=== PATIENT | female | born 1990 | race Two or more races ===

== ENCOUNTER 2016-08-26 05:12 | Observation (INO) | payer BC ==
[2016-08-26] MEDS ORDERED: NS 1,000 ML IV ONE (05:19)
[2016-08-26] MEDS ORDERED: ONDANSETRON 4 MG/2 ML VIAL IVP ONE (05:19)
--- NOTE | 2016-08-26 05:19 | EDPHY ---
H & P HPI/ROS: HPI CHIEF COMPLAINT: Seizure HISTORY OF PRESENT ILLNESS: This patient very pleasant 25-year-old female, does have significant past medical history for seizures, she lives in [facility] and is visiting a friend here in [place]. According to EMS she had 3 seizures this evening. Per her friend who witnessed the seizures she had 3 individual seizures lasting 20-30 seconds. The 1st seizure was at 10:00 p.m., 2nd seizure 2:45 a.m., 3rd seizure at 3:50 a.m. They were described by friends generalized tonic-clonic lasting 30 seconds with a postictal state and then had another seizure and then 1 other each lasting about 30 seconds with a postictal state. upon arrival here to the emergency room by EMS she is alert and orient x4, he is unsure exactly what happened. She did bite her tongue. There is no tongue laceration. she tells me that she used to be on seizure medications but did not like the way it made her feel so she does not take anything she uses CBD will to control her seizures. She tells me she lives in [place] and is followed by a neurologist in [place]. She denies recent drug or alcohol use. She denies chest pain or shortness of breath denies recent illness. She tells me last time she had a seizure was in April. Past Medical History:Epilepsy Past Surgical History: denies surgical history Social History: lives in [place] [facility] visiting a friend here in [place], uses CBD oil to control her seizures, denies illicit drugs alcohol tobacco Family History: Noncontributory ROS REVIEW OF SYSTEMS: A comprehensive 10 point review of systems is otherwise negative aside from elements mentioned in the history of present illness. Exam Constitutional appears well nontoxic,triage nursing summary reviewed, vital signs reviewed, awake/alert. Eyes normal conjunctivae and sclera, EOMI, PERRLA. HENT normal inspection, atraumatic, moist mucus membranes, no epistaxis, neck supple/ no meningismus, no raccoon eyes. Respiratory clear to auscultation bilaterally, normal breath sounds, no respiratory distress, no wheezing. Cardiovascular rate normal, regular rhythm, no murmur, no edema, distal pulses normal. Gastrointestinal soft, non-tender, no rebound, no guarding, normal bowel sounds, no distension, no pulsatile mass. Genitourinary no CVA tenderness. Musculoskeletal no midline vertebral tenderness, full range of motion, no calf swelling, no tenderness of extremities, no meningismus, good pulses, neurovascularly intact. Skin pink, warm, & dry, no rash, skin atraumatic. Neurologic awake, alert and oriented x 3, AAOx3, moves all 4 extremities equally, motor intact, sensory intact, CN II-XII intact, normal cerebellar, normal vision, normal speech. Psychiatric normal mood/affect. Heme/Lymph/Immune no lymphadenopathy. Differential Diagnosis: Includes but is not limited to in a particular order, epilepsy, breakthrough seizure, dehydration, electrolyte abnormality Medical Decision Making: Patient had a CT scan of her head and due to recurrent seizures, we will obtain blood work she will be gently hydrated with IV fluids normal saline, obtain blood work including electrolytes, drug screen, urinalysis and test. Will watch her monitor make sure she does not have recurrent seizures. Re-evaluation: CT scan of the head without IV contrast for seizure The results of the study are negative for anything acute. The study was read by Dr. Lux. I viewed the images myself on the PACS system. 0643: Spoke with [facility] Recomend Keppra load, admission, and for neurology to see. Patient agrees for admission agrees to taking IV Keppra and agrees for neurology to see. Source: Patient Constitutional: Initial Vital Signs Temperature (C) 36.8 C 08/26/16 06:03 Heart Rate 91 08/26/16 06:03 Respiratory Rate 18 08/26/16 06:03 Blood Pressure 108/80 08/26/16 06:03 O2 Sat (%) 92 08/26/16 06:03 O2 Delivery Mode Room Air O2 (L/minute) 2 Allergies/Adverse Reactions: No Known Allergies Allergy (Unverified 08/26/16 06:02) Home Medications: Medication Instructions Recorded Thc Oil/Cannibanoid Oil 08/26/16 Medical Decision Making - Data Points Laboratory Results: Laboratory Results 08/26/16 05:10 08/26/16 05:10 08/26/16 08/26/16 05:30 05:10 WBC 12.56 H 10^3/uL (3.80-9.50) RBC 4.52 10^6/uL (4.18-5.33) Hgb 13.4 g/dL (12.6-16.3) Hct 39.3 % (38.0-47.0) MCV 86.9 fL (81.5-99.8) MCH 29.6 pg (27.9-34.1) MCHC 34.1 g/dL (32.4-36.7) RDW 12.7 % (11.5-15.2) Plt Count 359 10^3/uL (150-400) MPV 10.0 fL (8.7-11.7) Neut % (Auto) 82.5 H % (39.3-74.2) Lymph % (Auto) 12.3 L % (15.0-45.0) [place] % (Auto) 4.5 % (4.5-13.0) Eos % (Auto) 0.1 L % (0.6-7.6) Baso % (Auto) 0.2 L % (0.3-1.7) Nucleat RBC Rel Count 0.0 % (0.0-0.2) Absolute Neuts (auto) 10.36 H 10^3/uL (1.70-6.50) Absolute Lymphs (auto) 1.54 10^3/uL (1.00-3.00) Absolute Monos (auto) 0.57 10^3/uL (0.30-0.80) Absolute Eos (auto) 0.01 L 10^3/uL (0.03-0.40) Absolute Basos (auto) 0.03 10^3/uL (0.02-0.10) Absolute Nucleated RBC 0.00 10^3/uL (0-0.01) Immature Gran % 0.4 % (0.0-1.1) Immature Gran # 0.05 10^3/uL (0.00-0.10) Sodium 140 mEq/L (134-144) Potassium 4.0 mEq/L (3.5-5.2) Chloride 104 mEq/L (97-110) Carbon Dioxide 22 mEq/l (22-31) Anion Gap 14 mEq/L (8-16) BUN 7 mg/dL (7-23) Creatinine 0.7 mg/dL (0.6-1.0) Estimated GFR > 60 Glucose 96 mg/dL (70-100) Calcium 9.5 mg/dL (8.5-10.4) Total Bilirubin 0.8 mg/dL (0.1-1.4) Conjugated Bilirubin 0.3 mg/dL (0.0-0.5) Unconjugated Bilirubin 0.5 mg/dL (0.0-1.1) AST 35 IU/L (14-46) ALT 38 IU/L (9-52) Alkaline Phosphatase 58 IU/L (38-126) Total Protein 7.5 g/dL (6.3-8.2) Albumin 4.5 g/dL (3.5-5.0) Beta HCG, Qual NEGATIVE Urine Color YELLOW Urine Appearance HAZY Urine pH 5.0 (5.0-7.5) Ur Specific Cecil 1.008 (1.002-1.030) Urine Protein NEGATIVE (NEGATIVE) Urine Ketones NEGATIVE (NEGATIVE) Urine Blood NEGATIVE (NEGATIVE) Urine Nitrate NEGATIVE (NEGATIVE) Urine Bilirubin NEGATIVE (NEGATIVE) Urine Urobilinogen NEGATIVE EU (0.2-1.0) Ur Leukocyte Esterase 1+ H (NEGATIVE) Urine RBC 1-3 /hpf (0-3) Urine WBC 5-10 H /hpf (0-3) Ur Epithelial Cells TRACE /lpf (NONE-1+) Urine Bacteria TRACE H /hpf (NONE SEEN) Urine Mucus TRACE /lpf (NONE-1+) Ur Culture Indicated? INDICATED H (NI) Urine Glucose NEGATIVE (NEGATIVE) Urine Opiates Screen NEGATIVE (NEGATIVE) Urine Barbiturates NEGATIVE (NEGATIVE) Ur Phencyclidine Scrn NEGATIVE (NEGATIVE) Ur Amphetamine Screen NEGATIVE (NEGATIVE) U Benzodiazepines Scrn NEGATIVE (NEGATIVE) Urine Cocaine Screen NEGATIVE (NEGATIVE) U Marijuana (THC) Screen NON-NEGATIVE H (NEGATIVE) Medications Given: Discontinued Medications Hydromorphone HCl (Dilaudid) 0.5 mg IVP EDNOW ONE Stop: 08/26/16 05:50 Last Admin: 08/26/16 06:06 Dose: 0.5 mg Sodium Chloride (Ns) 1,000 mls @ 0 mls/hr IV ONCE ONE PRN Reason: Wide Open Stop: 08/26/16 05:20 Last Admin: 08/26/16 06:05 Dose: 1,000 mls Ceftriaxone Sodium/Dextrose (Rocephin 1 Gm (Premix)) 50 mls @ 100 mls/hr IV EDNOW ONE PRN Reason: Protocol Stop: 08/26/16 06:26 Last Admin: 08/26/16 06:18 Dose: 50 mls Ondansetron HCl (Zofran) 4 mg IVP EDNOW ONE Stop: 08/26/16 05:20 Last Admin: 08/26/16 06:06 Dose: 4 mg Departure - Departure Disposition: Home, Routine, Self-Care Clinical Impression: Seizure Condition: Good Referrals: Patient,NotPresent [Unknown] - As per Instructions
[2016-08-26 05:27] LABS: % IMMATURE GRANULYOCYTES 0.4 % (0.0-1.1); ABSOLUTE IMMATURE GRANULOCYTES 0.05 10^3/uL (0.00-0.10); ADD DIFF? NO; ADD MORPH? NO; ADD SCAN? NO; ATYPICAL LYMPHOCYTE FLAG 0 (0-99); FRAGMENT RBC FLAG 0 (0-99); HEMATOCRIT 39.3 % (38.0-47.0); HEMOGLOBIN 13.4 g/dL (12.6-16.3); LEFT SHIFT FLG 0 (0-99); LIPEMIA HEMOLYSIS FLAG 90 (0-99); MEAN CELL HEMOGLOBIN 29.6 pg (27.9-34.1); MEAN CELL HEMOGLOBIN CONCENTR. 34.1 g/dL (32.4-36.7); MEAN CELL VOLUME 86.9 fL (81.5-99.8); PLATELET CLUMPS FLAG 0 (0-99); PLATELET COUNT 359 10^3/uL (150-400); RED BLOOD CELL COUNT 4.52 10^6/uL (4.18-5.33); RED CELL DISTRIBUTION WIDTH 12.7 % (11.5-15.2)
[2016-08-26 05:45] LABS: ALANINE AMINOTRANSFERASE 38 IU/L (9-52); ALBUMIN 4.5 g/dL (3.5-5.0); ALKALINE PHOSPHATASE 58 IU/L (38-126); ANION GAP 14 mEq/L (8-16); ASPARTATE AMINOTRANSFERASE 35 IU/L (14-46); BILIRUBIN,TOTAL 0.8 mg/dL (0.1-1.4); BILIRUBIN-CONJUGATED 0.3 mg/dL (0.0-0.5); BILIRUBIN-UNCONJUGATED 0.5 mg/dL (0.0-1.1); CALCIUM 9.5 mg/dL (8.5-10.4); CARBON DIOXIDE 22 mEq/l (22-31); CHLORIDE 104 mEq/L (97-110); CREATININE 0.7 mg/dL (0.6-1.0); GLOMERULAR FILTRATION RATE > 60; GLUCOSE 96 mg/dL (70-100); SODIUM 140 mEq/L (134-144); TOTAL PROTEIN 7.5 g/dL (6.3-8.2)
[2016-08-26 05:47] LABS: COLOR YELLOW; LEUKOCYTE ESTERASE,URINE 1+ (NEGATIVE); NITRITE,URINE NEGATIVE (NEGATIVE)
[2016-08-26] MEDS ORDERED: HYDROmorphONE/DILAUDID 1 MG/ML SYR IVP ONE (05:49)
[2016-08-26 05:54] LABS: BACTERIA TRACE /hpf (NONE SEEN); MUCUS TRACE /lpf (NONE-1+)
[2016-08-26 06:28] VITALS: O2SAT 97
[2016-08-26] MEDS ORDERED: levETIRAcetam 1,000 MG in NS 100 ML IV ONE (06:43)
[2016-08-26] MEDS ORDERED: LORazepam 2 MG/ML INJ IVP PRN (06:55)
[2016-08-26] MEDS ORDERED: NS 1,000 ML IV SCH (07:00)
--- NOTE | 2016-08-26 07:19 | CT ---
CT Head (Without Contrast) 5:45 a.m. Indication: Seizure. Comparison: None Technique: Standard noncontrast head CT protocol utilizing 5-mm thick collimated slices and field of view of 23 cm. Dose reduction techniques were utilized. Findings: The brain is normally developed. No intracranial hemorrhage, mass lesion, swelling, or ext raaxial fluid collection. The ventricles are normal caliber and midline. The bautista and white matter rivera s normal attenuation. No evidence of ischemia. The bones are unremarkable. The paranasal sinuses are clear, except for a small retention cyst in the left maxillary sinus. Impression: Normal brain. No acute intracranial process. The study was performed as an emergency on-call case and discussed by telephone with Dr. Bala pastrana at 6:05 a.m. on August 26, 2016. The final interpretation is concordant with the original commun ication.
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
[2016-08-26] MEDS ORDERED: lamoTRIgine 25 MG TAB PO SCH (09:30)
--- NOTE | 2016-08-26 09:48 | GCON ---
[f rep st] CONSULTATION REFERRING PHYSICIAN: Cristiane Bernstein MD HISTORY: The patient is a 25-year-old woman who has a history of 2 prior seizures until yesterday wh en she started having more seizures. She says she had normal and development and did not have any childhood seizures. She is able to provide history and her friend is with her, who also provides history, and the friend witnessed all the events. She had experienced a seizure in December 2014 and wa s not on medication after that. She had a 2nd seizure in April 2016. Both of these seemed to be a round her menstrual cycle. She was seen in [place] and started on Keppra but only took it for 2 weeks because she did not like the side effects. She then, on her own, started using CBD oil and then cam e to [place] a few months ago and got some THC and was self dosing to try to control her seizures th at way. She came into town recently to be with a friend and yesterday started having a feeling of au ra. She started having what sounds like myoclonic jerks during the day, and then had a series of sei zures over the last 12 hours. These all occurred while she was in bed and her friend was sleeping wi th her. They were described as tonic-clonic events. She bit her tongue. The seizures occurred at 1 0:00 p.m., 2:15 a.m. and 3:50 a.m. She had a little bit of confusion persisting between the events, but that was less and less after each 1, and now she has come to the emergency room where she was lauren luated and subsequently admitted. She received a loading dose of Keppra. She denies focal numbness or weakness. She has a sore tongue. She is very tired but is coming around toward her baseline agai n. REVIEW OF SYSTEMS: A 10-point review of systems is otherwise unremarkable. No other triggers or exa cerbating factors have occurred. She has some bacteria and might have a UTI now, and got some ceftri axone. FAMILY HISTORY: Negative for seizures. SOCIAL HISTORY: She is . She has occasional alcohol. She is using the THC products as outli gertrudis. Not a smoker. PAST MEDICAL HISTORY: She does not have any chronic medical problems otherwise. ALLERGIES: Hydrocodone. MEDICATIONS: As outlined above. PHYSICAL EXAM: VITAL SIGNS: Blood pressure is 112/60, temperature 37.1, respiratory rate 18, pulse 87. GENERAL: She is well developed, lying in bed, in no acute distress. Eyes are clear. NECK: Sup ple. No bruits or masses. CARDIAC: Regular rate and rhythm. No murmur. LUNGS: Clear. EXTREMITI ES: No cyanosis or edema. Pulses 2+. NEUROLOGIC: She is lethargic but arousable. She is oriented to person, place, and time and general situation. She knows details of why she is here, although sh afua does remember all the events in the last several hours during the seizure time frame. Recent memor y is reduced for these events. Otherwise remote memory seems to be intact. Concentration and attent ion are preserved and good general fund of knowledge. Pupils 3 mm and reactive. No funduscopic abno rmalities or obvious visual field loss. Extraocular movements are intact. Normal facial sensation a nd strength. Palate elevates symmetrically. Tongue protrudes midline. She has some bruises and lac erations to the lateral sides of her tongue. Hearing is preserved. No weakness of head turning or s houlder shrug. Motor exam, normal muscle bulk and tone. 5/5 strength. No abnormal movements. Sensa tion is preserved for temperature and light touch. No ataxia in the upper extremities. Reflexes are 1+. No pathologic reflexes. LABORATORY STUDIES: Showed THC in the urine screen. Urinalysis shows 5-10 white cells with trace ba cteria. Chemistry shows a bicarbonate of 14. Liver enzymes are normal. Otherwise normal electrolyt es. White count of 12,000, hematocrit 39%. She had a head CT, which I reviewed; this is normal. IMPRESSION: The patient has experienced a series of seizures over the last 12 hours which is not dolores hnically status epilepticus, but certainly a large flurry of seizures and not complete return to base line between the events, but getting closer to her baseline, according to her friend, after each even t occurred. From some of the description, it sounds as if she may also have some episodic myoclonus and had a sense aura yesterday before this occurred. She said that she has had previous workup with MRI and EEG, and nothing was specifically found. A primary generalized epilepsy is possible, althoug h she is describing symptoms that could also correlate with catamenial epilepsy and many of the event s have occurred nocturnally, which is not necessarily coincidental. In any case, she had previously tried Keppra but did not like the side effects. I had a detailed discussion with her about risks and my recommendation to not use the cannabinoid products as her principal controlling seizures. She is willing to try something else, so we will initiate lamotrigine 25 mg twice daily. She does not do w ell swallowing tablets so we will see about using the oral dissolving tablet or chewable formulation. We can start the dosing here. She is advised not to drive for 3 months. I told her as long she re covers today, over the next many hours she can go back to be with her friend. I think it is safer to fly back to [place] tomorrow if she is feeling well otherwise. I talked about the fact that seizures can be life threatening, but that most of the time the recovery is expected to be good even when she has a series of seizures like this. /[id number]/MODL
[2016-08-26 13:30] VITALS: BP 99/60; PULSE 90; RESP 17; TEMP 98.2
--- NOTE | 2016-08-26 20:37 | GDS ---
[f rep st] DISCHARGE SUMMARY CONSULTANTS: Neurology, Dr. Jovani Rosas. HISTORY OF PRESENT ILLNESS: For details, please see dictated history and physical dated August 26, [address] Shefali Bernstein. In brief, the patient is a 25-year-old female with a history of epilepsy who was brought to the hospital by a friend due to seizures. She had previously been taking Keppra and cannabis to control her seizures, though she did not like the side effects of Keppra, so she disc ontinued this. In addition, upon traveling [place] from [place], she also did not use her cannabis me dication, and upon arrival in [place], she developed seizure activity. [facility]. HOSPITAL COURSE: The patient was moved to the Observation Unit. She was loaded with Keppra upon adm ission. A CT head was performed; it was negative. Her electrolytes were normal. A Neurology consul t was obtained and as the patient had reported untoward side effects with Keppra, she was changed to Lamictal. She remained seizure free during her Observation stay. She is safe for discharge home and may fly back to [place] tomorrow, acknowledging that she will always have some seizure risk. She is a dvised to not drive for at least 3 months and until cleared by her neurologist back in [place]. DISPOSITION: Patient is discharged home in stable condition. DISCHARGE MEDICATIONS: Please see [employer] for completed, updated outpatient medication list. New medications on discharge include Lamictal 25 mg p.o. b.i.d. (#60, no refills). FOLLOWUP: Patient should follow up with her neurologist upon return to [place]. /[id number]/MODL
== END 2016-08-26 13:35 | disposition home or self-care (01) ==
LOC: INTOOBSV 06:49 → F1N 07:56
PROVIDERS: ADMIT Internal Medicine; ATTEND Hospitalist
DX: G40.409 Other generalized epilepsy and epileptic syndromes, not intractable, without status epilepticus (principal); N39.0 Urinary tract infection, site not specified
CPT/HCPCS: 70450; 96365; 96375; 99285; G0378; 80305; J0696; J1170; J1953; J2405